=== PATIENT | male | born 2000 | race Caucasian/White ===

== ENCOUNTER 2024-05-13 09:49 | Emergency (ER) | payer MEDICAID ==
[~2024-05-13] VITALS: Ht 172.7 cm; Wt 104.3 kg
[2024-05-13 10:06] VITALS: BP 109/60; PULSE 70; RESP 18; TEMP 98.2; O2SAT 98
== END 2024-05-13 11:04 ==
LOC: MED 09:49
DX: Z02.89 Encounter for other administrative examinations (principal); E11.9 Type 2 diabetes mellitus without complications; R03.0 Elevated blood-pressure reading, without diagnosis of hypertension
CPT/HCPCS: 99283